=== PATIENT | male | born 1995 | race Two or more races ===

== ENCOUNTER 2017-03-19 11:30 | Emergency (ER) | payer OTHER ==
[~2017-03-19] VITALS: Ht 182.9 cm; Wt 79.4 kg
[2017-03-19 11:43] VITALS: BP 119/77
== END 2017-03-19 12:17 | disposition home or self-care (01) ==
LOC: ER 11:30
DX: E11.9 Type 2 diabetes mellitus without complications (principal); Z76.0 Encounter for issue of repeat prescription

== ENCOUNTER 2017-05-01 07:14 | Emergency (ER) | payer MEDICAID, OTHER ==
[~2017-05-01] VITALS: Ht 182.9 cm; Wt 79.4 kg
[2017-05-01 08:02] VITALS: BP 135/90
== END 2017-05-01 08:06 | disposition home or self-care (01) ==
LOC: ER 07:14
DX: E11.9 Type 2 diabetes mellitus without complications (principal); Z76.0 Encounter for issue of repeat prescription